=== PATIENT | female | born 1940 | race Caucasian/White ===

== ENCOUNTER → 2019-09-20 14:55 | Outpatient (BNVA) | payer MEDICARE, SELFPAY | PROVIDERS: Family Provider Family Medicine; PCP Family Medicine; Referring Provider Physician Assistant; Visit Provider Nurse Practitioner Family | DX: Z79.899 Other long term (current) drug therapy (principal); E11.29 Type 2 diabetes mellitus with other diabetic kidney complication; N32.81 Overactive bladder; I10 Essential (primary) hypertension | CPT/HCPCS: 36415; 80069 ==

== ENCOUNTER → 2020-06-23 00:01 | Outpatient (BNVA) | payer MEDICARE, SELFPAY | PROVIDERS: Family Provider Family Medicine; PCP Family Medicine; Visit Provider Family Medicine | DX: R42 Dizziness and giddiness (principal); Z98.890 Other specified postprocedural states; M62.838 Other muscle spasm; I10 Essential (primary) hypertension; E11.9 Type 2 diabetes mellitus without complications | CPT/HCPCS: 80053; 80061 ==

== ENCOUNTER → 2020-09-06 11:34 | Outpatient (BNVA) | payer MEDICARE, SELFPAY | PROVIDERS: Family Provider Family Medicine; PCP Family Medicine; Referring Provider Internal Medicine; Visit Provider Internal Medicine | DX: E83.52 Hypercalcemia (principal); N18.32 Chronic kidney disease, stage 3b; I10 Essential (primary) hypertension; Z79.899 Other long term (current) drug therapy | CPT/HCPCS: 80069; 82043; 82306; 82310; 83883; 83970; 84155; 84165; 85025 ==

== ENCOUNTER 2020-09-13 06:00 | Outpatient (RCR) | payer MEDICARE, SELFPAY | END 2020-09-19 23:59 | disposition home or self-care (01) | LOC: MPT 06:00 | PROVIDERS: Family Provider Family Medicine; PCP Family Medicine; Referring Provider Family Medicine; Visit Provider Family Medicine | DX: R42 Dizziness and giddiness (principal) | CPT/HCPCS: 97110; 97161 ==

== ENCOUNTER 2020-09-20 06:00 | Outpatient (RCR) | payer MEDICARE, SELFPAY | END 2020-10-19 23:59 | disposition home or self-care (01) | LOC: MPT 06:00 | PROVIDERS: PCP Family Medicine; Referring Provider Family Medicine; Visit Provider Family Medicine | DX: R42 Dizziness and giddiness (principal) | CPT/HCPCS: 97110; 97140 ==

== ENCOUNTER 2020-10-19 11:00 | Outpatient (CLI) | payer MEDICARE, SELFPAY ==
--- NOTE | 2020-10-19 11:06 | US_ITS ---
WS: [id number] ULTRASOUND RENAL TECHNIQUE: Ultrasound examination of both kidneys. CLINICAL INFORMATION: CKD STAGE 3B COMPARISON: None. FINDINGS: RIGHT: Right kidney is normal in size and appearance. Echogenicity: Normal. Cortical thickness: 1.5 cm; Normal. Hydronephrosis: None. Perinephric fluid: None. Right kidney measures: 8.6 cm x 6.1 cm x 4.8 cm. LEFT:Simple appearing left renal cyst measuring 2.6 x 2.8 x 2.8 cm Left kidney is normal in size and appearance. Echogenicity: Normal. Cortical thickness: 1.3 cm; Normal. Hydronephrosis: None. Perinephric fluid: None. Left kidney measures: 9.9 cm x 5.5 cm x 5.5 cm. Normal visualized aorta. Normal bladder. US/US renal BI* [id number] IMPRESSION: 1. No hydronephrosis in either kidney. 2. Simple appearing left renal cyst measuring 2.6 x 2.8 x 2.8 cm 3. Normal bladder
== END 2020-10-19 11:01 | disposition home or self-care (01) ==
LOC: US 11:03
PROVIDERS: PCP Family Medicine; Visit Provider Internal Medicine
DX: N18.32 Chronic kidney disease, stage 3b (principal); N28.1 Cyst of kidney, acquired
CPT/HCPCS: 76770

== ENCOUNTER → 2020-12-13 09:22 | Outpatient (BNVA) | payer MEDICARE, SELFPAY | PROVIDERS: PCP Family Medicine; Referring Provider Physician Assistant; Visit Provider Physician Assistant | DX: D47.2 Monoclonal gammopathy (principal); E11.22 Type 2 diabetes mellitus with diabetic chronic kidney disease; N18.32 Chronic kidney disease, stage 3b; Z79.4 Long term (current) use of insulin | CPT/HCPCS: 80053; 80061; 82310; 83036; 83883; 83970; 84155; 84165; 84443; 85025 ==

== ENCOUNTER → 2021-01-10 10:01 | Outpatient (BNVA) | payer MEDICARE, SELFPAY | PROVIDERS: PCP Family Medicine; Visit Provider Internal Medicine | DX: N18.32 Chronic kidney disease, stage 3b (principal) | CPT/HCPCS: 80069; 82043; 84550; 85025 ==

== ENCOUNTER → 2021-04-19 09:57 | Outpatient (BNVA) | payer MEDICARE, SELFPAY | PROVIDERS: PCP Family Medicine; Visit Provider Nurse Practitioner Family | DX: N18.32 Chronic kidney disease, stage 3b (principal) | CPT/HCPCS: 80069; 81003; 82043; 82652; 85025; 87086 ==

== ENCOUNTER → 2021-08-24 14:00 | Outpatient (BNVA) | payer OTHER, SELFPAY | PROVIDERS: PCP Family Medicine; Visit Provider Internal Medicine | DX: N18.32 Chronic kidney disease, stage 3b (principal) | CPT/HCPCS: 80069; 82310; 82570; 82652; 83970; 84156 ==

== ENCOUNTER → 2021-10-19 09:29 | Outpatient (BNVA) | payer OTHER, SELFPAY | PROVIDERS: PCP Family Medicine; Visit Provider Family Medicine | DX: M54.2 Cervicalgia (principal); M62.838 Other muscle spasm | CPT/HCPCS: 72040 ==

== ENCOUNTER → 2021-11-30 10:59 | Outpatient (BNVA) | payer OTHER, SELFPAY | PROVIDERS: PCP Family Medicine; Visit Provider Nurse Practitioner Family | DX: N18.32 Chronic kidney disease, stage 3b (principal) | CPT/HCPCS: 80069; 82043; 82306; 82310; 82570; 83970; 84156; 85025 ==

== ENCOUNTER → 2021-12-14 10:31 | Outpatient (BNVA) | payer OTHER, SELFPAY | PROVIDERS: PCP Family Medicine; Visit Provider Family Medicine | DX: L03.116 Cellulitis of left lower limb (principal); R60.0 Localized edema | CPT/HCPCS: 73610 ==

== ENCOUNTER → 2021-12-21 15:59 | Outpatient (BNVA) | payer OTHER, SELFPAY | PROVIDERS: PCP Family Medicine; Visit Provider Student in an Organized Health Care Education/Training Program | DX: L03.90 Cellulitis, unspecified (principal); L03.116 Cellulitis of left lower limb; R60.0 Localized edema | CPT/HCPCS: 87070; 87075; 87205; 87641 ==

== ENCOUNTER 2022-01-30 12:35 | Outpatient (CLI) | payer MEDICARE, SELFPAY ==
--- NOTE | 2022-01-30 12:30 | USCV_ITS ---
Toyin Moore Age: 81 Gender: F : 1940 Exam Date: 01/30/2022 13:53 Ordering Phys: Shena Wu MD Technologist: [place]am [place] [facility] [place]: HISTORY: PROCEDURES: Bilateral duplex Venous Insufficiency study of the Deep and Superficial systems was carried out according to normal protocol with the patient in supine positon for deep system and dependent position for the superficial system. FINDINGS: All deep veins demonstrated compressibility without evidence of intraluminal thrombus or increased echogenicity. Spectral analysis of Doppler signals demonstrates normal response to compression maneuvers indicating patency without obstruction. Reflux determinations were made with the patient in the dependent position, the weight being on the contralateral leg. No notable reflux was seen at this time. CONCLUSIONS No evidence of DVT in the above-mentioned identifiable veins. No significant venous reflux were noted either in the deep or superficial veins bilaterally Normal caliber veins bilaterally Dr Nevaeh Portillo MD [facility] (Electronically Signed) Final Date: 01 February 2022 08:08 S
== END 2022-01-30 12:36 | disposition home or self-care (01) ==
LOC: RAD 12:36
PROVIDERS: PCP Family Medicine; Visit Provider Student in an Organized Health Care Education/Training Program
DX: L03.90 Cellulitis, unspecified (principal); R60.0 Localized edema
CPT/HCPCS: 93970

== ENCOUNTER → 2022-03-08 11:03 | Outpatient (BNVA) | payer MEDICARE, SELFPAY | PROVIDERS: PCP Family Medicine; Visit Provider Nurse Practitioner Family | DX: N18.32 Chronic kidney disease, stage 3b (principal); E83.52 Hypercalcemia | CPT/HCPCS: 80069; 82306; 82310; 82570; 83970; 84156; 85025 ==

== ENCOUNTER → 2022-03-19 15:17 | Outpatient (BNVA) | payer MEDICARE, SELFPAY | PROVIDERS: PCP Family Medicine; Visit Provider Internal Medicine | DX: R10.9 Unspecified abdominal pain (principal) | CPT/HCPCS: 81003 ==

== ENCOUNTER → 2022-06-07 11:59 | Outpatient (BNVA) | payer MEDICARE, MEDICAID, SELFPAY | PROVIDERS: PCP Family Medicine; Visit Provider Student in an Organized Health Care Education/Training Program | DX: L03.116 Cellulitis of left lower limb (principal); R60.0 Localized edema | CPT/HCPCS: 99214 ==

== ENCOUNTER → 2022-06-13 09:56 | Outpatient (BNVA) | payer MEDICARE, SELFPAY | PROVIDERS: PCP Family Medicine; Visit Provider Internal Medicine | DX: N18.9 Chronic kidney disease, unspecified (principal); E83.52 Hypercalcemia; I10 Essential (primary) hypertension; Z13.220 Encounter for screening for lipoid disorders; Z13.6 Encounter for screening for cardiovascular disorders | CPT/HCPCS: 80053; 80061; 80069; 82306; 82310; 82570; 83970; 84156; 85025 ==

== ENCOUNTER 2022-09-14 15:28 | Emergency (ER) | payer MEDICARE, SELFPAY ==
[2022-09-14 15:33] VITALS: PULSE 65; RESP 16; TEMP 36.6; O2SAT 97; BMI 36.0
--- NOTE | 2022-09-14 15:48 | ED_ITS ---
Documented by User: Laura Soares PA-C 09/14/22 16:22 HPI - Fall General: Chief Complaint: Fall Stated Complaint: fall, left arm pain Time Seen by Provider: 09/14/22 15:34 Source: patient Mode of arrival: ambulatory Limitations: no limitations History of Present Illness: 81-year-old female with a history of CKD stage III, diabetes, and hypertension presents to the ER today after a fall just prior to arrival. Patient reports she was standing at her table and the next thing she remembers that she was laying in the floor. Patient reports she must of lost consciousness when she passed out and hit her head on the cabinets. Patient reports she hit the front of her head somewhere and also her mouth. Patient reports she is had bleeding from her mouth and also difficulty speaking secondary to the pain and moving her jaw since hitting her face. Patient reports her teeth also hurt. Patient denies being on a blood thinner. She is unsure how long she was out but thi nking it was just more like seconds. Patient reports when she did wake up she had her left arm up under her. Since then she has noticed left arm pain along with a hematoma on the left arm. She also has bruising to the left forearm. Patient reports pain in the upper arm over the left shoulder with any movement. Patient also complains of neck pain. 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 Patient denies any blurry vision at this time. Denies headache other than just pain from the fall. Review of Systems General: Reports: 10 or more systems reviewed and unremarkable except in HPI and below PFSH ED PFSH: Medical History Abnormal EKG Chronic kidney disease, stage 3b Diabetes Hypertension Monoclonal gammopathy Overactive bladder Pacemaker Seasonal allergies Type 2 diabetes mellitus with diabetic chronic kidney disease Surgical History H/O lithotripsy Hx of cataract surgery Social History Smoking and tobacco status: never smoked Second hand smoke exposure: Yes Alcohol intake: never Desire information about alcohol rehabilitation?: No Substance/Drug Use: never Desire information about substance/drug rehabilitation?: No Current gender identity: Female Female Reproductive History: Spontaneous abortions: No Physical Exam Const: COMMON NORMALS: average body habitus, patient oriented x3, no limitations and well nourished HENMT: COMMON NORMALS: normocephalic, external ears normal, TM's normal bilaterally and Normal nasal mucous membranes and turbinates present HEAD & SCALP: normocephalic and other (Patient has an area of redness at the hairline) NOSE: Normal nasal mucous membranes and turbinates present EXTERNAL EAR: Yes external ears normal TYMPANIC MEMBRANE: TM's normal bilaterally MOUTH: mouth trauma (Patient is noted to have bleeding coming from small laceration) OTHER: Patient is noted to have bleeding coming from below the front teeth along with dental tenderness of the front teeth. Bleeding is still present but minimal. No lip lacerations are noted. Patient is also noted to redness at the center of the forehead where the hairline and forehead meet. No open wounds. No hematomas noted. Eye: COMMON NORMALS: Equal, round and reactive pupils present and EOMs intact bilaterally PUPIL: Yes Equal, round and reactive pupils present Neck/C-Spine: OTHER: Patient has tenderness along the C-spine and sternocleidomastoid on the left side. Decreased range of motion with rotation to the left. Resp: COMMON NORMALS: normal respiratory effort, No retractions and clear to auscultation bilaterally AUSCULTATION: clear to auscultation bilaterally Cardio: COMMON NORMALS: regular rate and regular rhythm RATE: regular rate RHYTHM: regular rhythm GI: COMMON NORMALS: Normal to inspection, nondistended, normoactive bowel sounds present, Soft to palpation and non-tender PALPATION: Yes Soft to palpation Extremity: NARRATIVE EXTREMITY EXAM: Patient has tenderness over the proximal humerus. Pain with abduction of the left shoulder. decreased range of motion. Neuro: COMMON NORMALS: patient oriented x3 Psych: COMMON NORMALS: mental status grossly normal, Normal thought process present and cooperative THOUGHT PROCESS: Normal thought process present Skin: NARRATIVE SKIN EXAM: See mouth exam, patient also noted to have a hematoma of the left upper extremity over the humerus and also some bruising of the left forearm. Course ED course: Patient had a fall with loss of consciousness. We will CT of the head given this. We will also CT the neck as patient has decreased range of motion of the neck. Patient is also having neck pain. We will also CT the facial bones as patient is noted to have a laceration below the front teeth with dental pain in that area. Vital Signs: Vital signs: Vital Signs Temperature 97.9 F 09/14/22 15:33 Pulse Rate 65 09/14/22 15:33 Respiratory Rate 16 09/14/22 15:33 Pulse Oximetry 97 09/14/22 15:33 Oxygen Delivery Me thod Room Air 09/14/22 15:33 MDM - Fall Lab Data Radiology Impressions Cervical Spine CT 09/14/22 16:06 IMPRESSION: No acute findings. Face CT 09/14/22 16:06 IMPRESSION: Unremarkable mandible. Head CT 09/14/22 16:06 IMPRESSION: No acute intracranial abnormality. Humerus X-Ray 09/14/22 16:06 IMPRESSION: No acute findings. Discharge Plan Discharge Patient Disposition: Home Clinical Impression: Concussion with loss of consciousness, Contusion of arm, left, Facial contusion, Laceration of mouth, complicated Condition: Stable Prescriptions: New clindamycin HCl 300 mg capsule 300 mg PO Q8H 7 Days Qty: 21 0RF No Action loratadine 10 mg tablet 10 mg PO DAILY Novolin N FlexPen 100 unit/mL (3 mL) insulin pen 6 unit SUBCUT DAILY Rx Instructions: at bedtime ergocalciferol (vitamin D2) [Vitamin D2] 1,250 mcg (50,000 unit) capsule 1,250 mcg PO .monthly levothyroxine 25 mcg capsule 75 mcg PO DAILY isosorbide mononitrate 30 mg tablet extended release 24 hr 90 mg PO DAILY Patient Comments: 2 in AM, 1 in PM dexamethasone 4 mg tablet 4 mg PO DAILY Rx Instructions: Patient has injection on Saturday and takes one tab Sat and with chemo Januvia 50 mg tablet 50 mg PO DAILY glimepiride 2 mg tablet 2 mg PO DAILY furosemide [Lasix] 20 mg tablet 10 mg PO QAM PRN (Reason: edema) vitamin B complex Tablet 1 tab PO DAILY potassium gluconate 595 mg (99 mg) tablet 595 mg PO DAILY lisinopril 40 mg tablet 40 mg PO DAILY Hold Instructions: Home Medication placed on hold at Doctor's office aspirin 81 mg tablet,delayed release (DR/EC) 81 mg PO DAILY nitroglycerin [Nitrostat] 0.4 mg tablet, sublingual 0.4 mg SUBLINGUAL Q5M PRN amlodipine 5 mg tablet 5 mg PO BID Hold Instructions: Home Medication placed on hold at Doctor's office clotrimazole [Athlete's Foot (clotrimazole)] 1 % cream 1 applic topical BID 28 Days Qty: 15 0RF tizanidine 2 mg capsule 4 mg PO BID PRN (Reason: muscle spasticity) Qty: 30 0RF Rx Instructions: 1 or 2 cap as directed by albuterol sulfate [ProAir HFA] 90 mcg/actuation HFA aerosol inhaler 2 puff inhalation QID PRN (Reason: shortness of breath or wheezing) 30 Days Qty: 18 5RF oxybutynin chloride 5 mg tablet 5 mg PO BID 90 Days Qty: 180 3RF ondansetron HCl 8 mg tablet 8 mg PO Q8H acyclovir 400 mg tablet 800 mg PO DAILY hydrocodone-acetaminophen 5-325 mg tablet 1.5 tab PO Q6H PRN gabapentin 300 mg capsule See Rx Instructions .ROUTE .COMPLEX Qty: 270 0RF Dose Instruction: TAKE 1 CAPSULE BY MOUTH 3 TIMES DAILY Rx Instructions: TAKE 1 CAPSULE BY MOUTH 3 TIMES DAILY atorvastatin [Lipitor] 40 mg tablet 40 mg PO DAILY 90 Days Qty: 90 1RF Discharge Orders: Discharge ED (Routine); Ordered 09/14/22 Ordered By: Leigh Ann Ambriz Referrals: Kelly Leblanc MD [Primary Care Provider] - Discharge Diet: Clear Liquid Discharge Activity: Increase activity as tolerated Patient Instructions: Concussion/Head Injury - Adult, Dental Laceration (ED) Activity Restrictions/Additional Instructions: Take antibiotic as directed starting tomorrow. Clear liquid diet for the next 3 days until that is healing up nicely. Your sutures are dissolvable and will dissolve on their own. You do not need to do anything with them. Gargle with warm salt water. Follow-up with dentist for reevaluation. Follow-up with primary care provider. Return to the ER for any new or worsening symptoms Coding Level of Care Code ED Insulating Machine Operator for Chg Fwd Documented by User: Leigh Ann Ambriz, CREDIT CONTROL ASSISTANT-C 09/15/22 02:32 HPI - Fall General: Chief Complaint: Fall Stated Complaint: fall, left arm pain Time Seen by Provider: 09/14/22 15:34 PFS ED PFSH: Medical History Abnormal EKG Chronic kidney disease, stage 3b Diabetes Hypertension Monoclonal gammopathy Overactive bladder Pacemaker Seasonal allergies Type 2 diabetes mellitus with diabetic chronic kidney disease Surgical History H/O lithotripsy Hx of cataract surgery Social History Smoking and tobacco status: never smoked Second hand smoke exposure: Yes Alcohol intake: never Desire information about alcohol rehabilitation?: No Substance/Drug Use: never Desire information about substance/drug rehabilitation?: No Current gender identity: Female Procedures Laceration Oral: Site: other (Oral) Size (cm): 2 Description: other (Gaping laceration in which the lip has completely torn away from the gingiva) Depth: [id number] Local Anesthetic: other anesthetic (Cetacaine spray) Pre-repair: irrigated extensively Skin layer closed with: vicryl Size (cm): 5-0 Number of sutures: 3 Technique: simple, interrupted Course Vital Signs: Vital signs: Vital Signs Temperature 97.9 F 09/14/22 15:33 Pulse Rate 65 09/14/22 15:33 Respiratory Rate 16 09/14/22 15:33 Pulse Oximetry 97 09/14/22 15:33 Oxygen Delivery Me thod Room Air 09/14/22 15:33 MDM - Fall Medical Decision Making Assumed care of patient from [facility]. Patient was awaiting CT results. CTs are unremarkable. Patient complaining of pain treated with morphine which she reports was effective. Patient has a deep laceration to her front lower gingiva the gingiva from the lip. Through the frenulum. I consulted with Dr. Peres who recommended to consult with ENT. There is no ENT coverage today. Dr. Peres recommended to consult with [facility] ENT. A call was placed to [facility] ENT. Dr. Jae Leal return call but recommended patient to the ER at [facility]. I spoke with Dr. Falcon, ER physician at [facility] who advised that he would accept patient only if ENT would agree to see the patient. While waiting for ENT to call back the patient decides that she does not want to consult with ENT in [place]. I discussed this case again with Dr. Peres who agrees with plan of care to flush the area out with saline and loosely suture. Patient has allergy to lidocaine but has used a spray topical in the past. Cetacaine was used. 3 absorbable 5-0 sutures placed to tack tissue back together and close gaping area to prevent food from collecting. Patient tolerated procedure well. Place her on a clear liquid diet for 3 days. Advised her sutures are absorbable so she does not need to return for removal. Placed patient on antibiotic prophylactic. Follow-up with dental next week. She has chronic pain medication at home to use. Return to ER as needed for new or worsening symptoms Lab Data Radiology Impressions Cervical Spine CT 09/14/22 16:06 IMPRESSION: No acute findings. Face CT 09/14/22 16:06 IMPRESSION: Unremarkable mandible. Head CT 09/14/22 16:06 IMPRESSION: No acute intracranial abnormality. Humerus X-Ray 09/14/22 16:06 IMPRESSION: No acute findings. Discharge Plan Discharge Patient Disposition: Home Clinical Impression: Concussion with loss of consciousness, Contusion of arm, left, Facial contusion, Laceration of mouth, complicated Condition: Stable Prescriptions: New clindamycin HCl 300 mg capsule 300 mg PO Q8H 7 Days Qty: 21 0RF No Action loratadine 10 mg tablet 10 mg PO DAILY Novolin N FlexPen 100 unit/mL (3 mL) insulin pen 6 unit SUBCUT DAILY Rx Instructions: at bedtime ergocalciferol (vitamin D2) [Vitamin D2] 1,250 mcg (50,000 unit) capsule 1,250 mcg PO .monthly levothyroxine 25 mcg capsule 75 mcg PO DAILY isosorbide mononitrate 30 mg tablet extended release 24 hr 90 mg PO DAILY Patient Comments: 2 in AM, 1 in PM dexamethasone 4 mg tablet 4 mg PO DAILY Rx Instructions: Patient has injection on Saturday and takes one tab Sat and with chemo Januvia 50 mg tablet 50 mg PO DAILY glimepiride 2 mg tablet 2 mg PO DAILY furosemide [Lasix] 20 mg tablet 10 mg PO QAM PRN (Reason: edema) vitamin B complex Tablet 1 tab PO DAILY potassium gluconate 595 mg (99 mg) tablet 595 mg PO DAILY lisinopril 40 mg tablet 40 mg PO DAILY Hold Instructions: Home Medication placed on hold at Doctor's office aspirin 81 mg tablet,delayed release (DR/EC) 81 mg PO DAILY nitroglycerin [Nitrostat] 0.4 mg tablet, sublingual 0.4 mg SUBLINGUAL Q5M PRN amlodipine 5 mg tablet 5 mg PO BID Hold Instructions: Home Medication placed on hold at Doctor's office clotrimazole [Athlete's Foot (clotrimazole)] 1 % cream 1 applic topical BID 28 Days Qty: 15 0RF tizanidine 2 mg capsule 4 mg PO BID PRN (Reason: muscle spasticity) Qty: 30 0RF Rx Instructions: 1 or 2 cap as directed by albuterol sulfate [ProAir HFA] 90 mcg/actuation HFA aerosol inhaler 2 puff inhalation QID PRN (Reason: shortness of breath or wheezing) 30 Days Qty: 18 5RF oxybutynin chloride 5 mg tablet 5 mg PO BID 90 Days Qty: 180 3RF ondansetron HCl 8 mg tablet 8 mg PO Q8H acyclovir 400 mg tablet 800 mg PO DAILY hydrocodone-acetaminophen 5-325 mg tablet 1.5 tab PO Q6H PRN gabapentin 300 mg capsule See Rx Instructions .ROUTE .COMPLEX Qty: 270 0RF Dose Instruction: TAKE 1 CAPSULE BY MOUTH 3 TIMES DAILY Rx Instructions: TAKE 1 CAPSULE BY MOUTH 3 TIMES DAILY atorvastatin [Lipitor] 40 mg tablet 40 mg PO DAILY 90 Days Qty: 90 1RF Discharge Orders: Discharge ED (Routine); Ordered 09/14/22 Ordered By: Leigh Ann Ambriz Referrals: Kelly Leblanc MD [Primary Care Provider] - Discharge Diet: Clear Liquid Discharge Activity: Increase activity as tolerated Patient Instructions: Concussion/Head Injury - Adult, Dental Laceration (ED) Activity Restrictions/Additional Instructions: Take antibiotic as directed starting tomorrow. Clear liquid diet for the next 3 days until that is healing up nicely. Your sutures are dissolvable and will dissolve on their own. You do not need to do anything with them. Gargle with warm salt water. Follow-up with dentist for reevaluation. Follow-up with primary care provider. Return to the ER for any new or worsening symptoms Coding Level of Care Code ED Insulating Machine Operator for Dwayne Avila
--- NOTE | 2022-09-14 15:57 | PC.NURSE ---
pt requested to go to the bathroom. pt was assisted to bathroom to find she had soiled her pants already. pt was cleaned in the bathroom and given a pullup and green scrub pants to wear during her stay.
--- NOTE | 2022-09-14 16:06 | CTR_ITS ---
PROCEDURE INFORMATION: Exam: CT Maxillofacial Without Contrast; Mandible Exam date and time: 09/14/2022 4:27 PM Age: 81 years old Clinical indication: Injury or trauma; Fall; Blunt trauma (contusions or hematomas); Jaw; Bilateral; Additional info: Hit mouth with fall, jaw/tooth pain TECHNIQUE: Imaging protocol: Computed tomography maxillofacial without contrast. Exam focused on the mandible. Radiation optimization: All CT scans at this facility use at least one of these dose optimization techniques: automated exposure control; mA and/or kV adjustment per patient size (includes targeted exams where dose is matched to clinical indication); or iterative reconstruction. REPORTING DATA: Count of CT and Cardiac NM exams in prior 12 months: This patient has received 0 known CTs and 0 known cardiac nuclear medicine studies in the 12 months prior to the current study. COMPARISON: CR XR cervical spine 3V* [id number] 10/19/2021 9:39 AM RADIATION DOSE METRICS: Total DLP (mGy-cm): 611.6 FINDINGS: Bones/joints: Mandible is unremarkable. No acute fracture. Paranasal sinuses: Normal. No air-fluid levels. Soft tissues: Unremarkable. CT/CT facial bones wo con* [id number] IMPRESSION: Unremarkable mandible.
--- NOTE | 2022-09-14 16:06 | XRR_ITS ---
PROCEDURE INFORMATION: Exam: XR Left Humerus Exam date and time: 09/14/2022 4:17 PM Age: 81 years old Clinical indication: Pain and injury or trauma; Fall; Blunt trauma (contusions or hematomas); Arm, upper; Left; Upper arm; Additional info: Fall with L shoulder pain TECHNIQUE: Imaging protocol: Radiologic exam of the left humerus. Views: 2 or more views. COMPARISON: CR XR cervical spine 3V* [id number] 10/19/2021 9:39 AM FINDINGS: Bones/joints: Left humerus is intact. Negative for fracture. Soft tissues: Normal. XR/[place] [id number] IMPRESSION: No acute findings.
--- NOTE | 2022-09-14 16:06 | CTR_ITS ---
PROCEDURE INFORMATION: Exam: CT Cervical Spine Without Contrast Exam date and time: 09/14/2022 4:27 PM Age: 81 years old Clinical indication: Pain and injury or trauma; Fall; Blunt trauma; Neck pain; Additional info: Fall with neck pain and decreased rom TECHNIQUE: Imaging protocol: Computed tomography of the cervical spine without contrast. Radiation optimization: All CT scans at this facility use at least one of these dose optimization techniques: automated exposure control; mA and/or kV adjustment per patient size (includes targeted exams where dose is matched to clinical indication); or iterative reconstruction. REPORTING DATA: Count of CT and Cardiac NM exams in prior 12 months: This patient has received 0 known CTs and 0 known cardiac nuclear medicine studies in the 12 months prior to the current study. COMPARISON: CR XR cervical spine 3V* [id number] 10/19/2021 9:39 AM RADIATION DOSE METRICS: Total DLP (mGy-cm): 265.4 FINDINGS: Bones/joints: No acute fracture. No spinal malalignment. 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 Lungs: Lung apices are normal. Soft tissues: Unremarkable. CT/CT cervical spin wo con* [id number] IMPRESSION: No acute findings.
--- NOTE | 2022-09-14 16:06 | CTR_ITS ---
PROCEDURE INFORMATION: Exam: CT Head Without Contrast Exam date and time: 09/14/2022 4:27 PM Age: 81 years old Clinical indication: Injury or trauma; Fall; Blunt trauma (contusions or hematomas); With loss of consciousness; Loss of consciousness for 30 minutes or less; Additional info: Fall with + loc TECHNIQUE: Imaging protocol: Computed tomography of the head without contrast. Radiation optimization: All CT scans at this facility use at least one of these dose optimization techniques: automated exposure control; mA and/or kV adjustment per patient size (includes targeted exams where dose is matched to clinical indication); or iterative reconstruction. REPORTING DATA: Count of CT and Cardiac NM exams in prior 12 months: This patient has received 0 known CTs and 0 known cardiac nuclear medicine studies in the 12 months prior to the current study. COMPARISON: CR XR cervical spine 3V* [id number] 10/19/2021 9:39 AM RADIATION DOSE METRICS: Total DLP (mGy-cm): 1144.7 FINDINGS: Brain: No hemorrhage. No edema. Mild diffuse cerebral atrophy and sequela of chronic small vessel ischemic disease. Old lacunar infarct noted in the right basal ganglia. No mass effect. Cerebral ventricles: No ventriculomegaly. Paranasal sinuses: Visualized sinuses are unremarkable. No fluid levels. Mastoid air cells: Visualized mastoid air cells are well aerated. Bones/joints: Unremarkable. No acute fracture. Soft tissues: Unremarkable. CT/CT head wo con* [id number] IMPRESSION: No acute intracranial abnormality.
[2022-09-14] MEDS: morphine 4 mg/mL SDV 1 mL 2 MG IVP (18:02)
--- NOTE | 2022-09-14 18:14 | PC.NURSE ---
pt iv meds pushed by domenic mendes rn
[2022-09-14] MEDS: cetacaine Spray 20 gm Can 1 SPRAY TOPICAL (20:51)
[2022-09-14] MEDS: clindamycin 150 mg Capsule 300 MG PO (20:54)
== END 2022-09-14 21:09 | disposition home or self-care (01) ==
PROVIDERS: Emergency Provider Physician Assistant; PCP Family Medicine
DX: S40.022A Contusion of left upper arm, initial encounter (principal); S00.83XA Contusion of other part of head, initial encounter; S06.0X9A Concussion with loss of consciousness of unspecified duration, initial encounter; S01.512A Laceration without foreign body of oral cavity, initial encounter; Z79.82 Long term (current) use of aspirin; Z79.4 Long term (current) use of insulin; Z79.84 Long term (current) use of oral hypoglycemic drugs; E11.22 Type 2 diabetes mellitus with diabetic chronic kidney disease; I12.9 Hypertensive chronic kidney disease with stage 1 through stage 4 chronic kidney disease, or unspecified chronic kidney disease; N18.32 Chronic kidney disease, stage 3b; Z95.0 Presence of cardiac pacemaker; Z77.22 Contact with and (suspected) exposure to environmental tobacco smoke (acute) (chronic); W18.39XA Other fall on same level, initial encounter
CPT/HCPCS: 70450; 70486; 72125; 73060; 96374; 99284; J2270

== ENCOUNTER → 2022-10-03 10:04 | Outpatient (BNVA) | payer MEDICARE, SELFPAY | PROVIDERS: PCP Family Medicine; Visit Provider Family Medicine | DX: R60.0 Localized edema (principal); E11.29 Type 2 diabetes mellitus with other diabetic kidney complication; I95.1 Orthostatic hypotension; I10 Essential (primary) hypertension; C90.00 Multiple myeloma not having achieved remission; N32.81 Overactive bladder; Z51.81 Encounter for therapeutic drug level monitoring; Z79.4 Long term (current) use of insulin | CPT/HCPCS: 80053; 82043; 83036; 84443 ==

== ENCOUNTER → 2022-10-17 10:01 | Outpatient (BNVA) | payer MEDICARE, SELFPAY | PROVIDERS: PCP Family Medicine; Visit Provider Internal Medicine | DX: N18.9 Chronic kidney disease, unspecified (principal) | CPT/HCPCS: 80069; 82542; 82570; 84156; 85025 ==

== ENCOUNTER 2022-10-19 16:38 | Emergency (ER) | payer MEDICARE, MEDICAID, SELFPAY ==
[2022-10-19 17:07] VITALS: BP 128/63; PULSE 62; RESP 18; TEMP 36.7; O2SAT 94; BMI 36.7
[2022-10-19 19:16] LABS: Basophils % 0.2 %; Eosinophils # 0.1 10^3/uL (0.0-0.8); Eosinophils % 0.8 %; Hematocrit 34.8 % (37.0-47.0); Hemoglobin 11.2 g/dL (11.5-15.3); Lymphocytes % 12.4 %; Mean Corpuscular HGB Conc 32.2 g/dL (30.0-36.0); Mean Corpuscular Hemoglobin 32.6 pg (28.0-34.0); Mean Corpuscular Volume 101.2 fl (81-99); Mean Platelet Volume 10.3 fL (7.4-10.4); Monocytes # 0.6 10^3/uL (0.2-0.9); Monocytes % 6.8 %; Neutrophils # 6.61 10^3/uL (1.8-7.7); Neutrophils % 79.4 %; Nucleated Red Blood Cells % 0 %; Platelet Count 151 10^3/cmm (130-400); Red Blood Count 3.44 10^6/uL (4.1-5.3); Red Cell Distribution Width 14.9 % (12.1-15.1); White Blood Count 8.3 10^3/uL (4.0-10.0)
[2022-10-19 19:18] LABS: Erythrocyte Sedimentation Rate < 1 mm/hr (0-15)
[2022-10-19 19:33] LABS: D Dimer 1.13 ug/mIFEU (0-0.59)
[2022-10-19 19:45] LABS: Alanine Aminotransferase 29 U/L (0-33); Albumin Level 4.3 g/dL (3.5-5.2); Alkaline Phosphatase 80 U/L (35-105); Anion Gap 15.9 (5-19); Aspartate Amino Transferase 23 U/L (0-32); Blood Urea Nitrogen 28 mg/dL (8-23); Carbon Dioxide 25 mmol/L (22-29); Chloride 108 mmol/L (98-107); Globulin 1.7 g/dL (1.3-4.6); Glucose 119 mg/dL (65-115); Osmolality Calculated 307 mOsm/kg (285-295); Potassium 3.9 mmol/L (3.5-5.1); Sodium 145 mmol/L (136-145); Total Bilirubin 0.3 mg/dL (0.15-1.2)
== END 2022-10-19 23:21 | disposition left against medical advice (07) ==
PROVIDERS: Emergency Medicine; Emergency Provider Physician Assistant; PCP Family Medicine
DX: Z53.21 Procedure and treatment not carried out due to patient leaving prior to being seen by health care provider (principal)
CPT/HCPCS: 36415; 80053; 83605; 85025; 85378; 85651; 86140; 99283

== ENCOUNTER → 2023-01-17 08:59 | Outpatient (BNVA) | payer MEDICARE, MEDICAID, SELFPAY | PROVIDERS: PCP Family Medicine; Referring Provider Family Medicine; Visit Provider Family Medicine | DX: N18.9 Chronic kidney disease, unspecified (principal) | CPT/HCPCS: 80069; 82542; 82570; 84156; 85025 ==

== ENCOUNTER → 2023-06-18 10:52 | Outpatient (BNVA) | payer MEDICARE, MEDICAID, SELFPAY | PROVIDERS: PCP Family Medicine; Visit Provider Family Medicine | DX: I10 Essential (primary) hypertension (principal); E11.29 Type 2 diabetes mellitus with other diabetic kidney complication; Z79.4 Long term (current) use of insulin; E11.9 Type 2 diabetes mellitus without complications | CPT/HCPCS: 80069; 82310; 82570; 83036; 83970; 84156; 85025 ==

== ENCOUNTER → 2023-10-22 10:00 | Outpatient (BNVA) | payer MEDICAID, SELFPAY | PROVIDERS: PCP Family Medicine; Referring Provider Family Medicine; Visit Provider Family Medicine | DX: N18.32 Chronic kidney disease, stage 3b (principal) | CPT/HCPCS: 80069; 82043; 82306; 82310; 83970; 85025 ==

== ENCOUNTER → 2024-02-24 11:21 | Outpatient (BNVA) | payer MEDICARE, MEDICAID, SELFPAY | PROVIDERS: PCP Family Medicine; Visit Provider Family Medicine | DX: I10 Essential (primary) hypertension (principal); J44.9 Chronic obstructive pulmonary disease, unspecified; C90.00 Multiple myeloma not having achieved remission; Z79.4 Long term (current) use of insulin; E11.29 Type 2 diabetes mellitus with other diabetic kidney complication | CPT/HCPCS: 80053; 80061; 83036; 83540 ==

== ENCOUNTER → 2024-03-10 09:46 | Outpatient (BNVA) | payer MEDICARE, MEDICAID, SELFPAY | PROVIDERS: PCP Family Medicine; Referring Provider Family Medicine; Visit Provider Family Medicine | DX: N18.32 Chronic kidney disease, stage 3b (principal) | CPT/HCPCS: 80069; 82043; 82310; 83970; 85007; 85027 ==

== ENCOUNTER 2024-03-20 14:00 | Outpatient (CLI) | payer MEDICARE, MEDICAID, SELFPAY ==
--- NOTE | 2024-03-20 15:00 | USCV_ITS ---
Toyin Moore Age: 83 Gender: F : 1940 Exam Date: 03/20/2024 14:46 Ordering Phys: Kelly Leblanc MD Technologist: Jamin Gotti Exam Location: [facility] – [place] Indication: essential hypertension BP: 134 / 76 HR: 58 Rhythm: Sinus Technical Quality: Adequate MEASUREMENTS (Male / Female) Normal Values 2D ECHO LV Diastolic Diameter PLAX 5.0 cm 4.2 - 5.9 / 3.9 - 5.3 cm IVS Diastolic Thickness 1.3 cm 0.6 - 1.0 / 0.6 - 0.9 cm IVS Systolic Thickness 2.3 cm LVPW Diastolic Thickness 1.9 cm 0.6 - 1.0 / 0.6 - 0.9 cm LVPW Systolic Thickness 2.6 cm LVOT Diameter 2.0 cm LV Ejection Fraction 2D Teich 80.9 % LV Ejection Fraction MOD 4C 75.4 % LV Ejection Fraction MOD 2C 74.4 % LV Ejection Fraction 2C AL 75.8 % LA Diameter 3.4 cm RA Systolic Volume 4C AL 49.0 ml RA Systolic Volume 4C MOD 49.0 ml LA Sys Volume AL 39.5 cm cubed LA Sys Volume Index AL 18.7 cm cubed/m squared Aorta at Sinotubular Diameter 2.3 cm IVC Diameter 1.5 cm M-MODE LA Ao Ratio MM 1.2 AV Cusp Separation MM 1.7 cm DOPPLER AV Peak Velocity 144.0 cm/s LVOT Peak Velocity 95.0 cm/s AV Area Cont Eq vti 2.7 cm squared AV Area Cont Eq pk 2.1 cm squared MV Peak Velocity 211.3 cm/s MV Area PHT 3.1 cm squared Mitral E to A Ratio 0.6 TV Peak Velocity 265.2 cm/s TR Peak Velocity 288.0 cm/s TR Peak Gradient 33.2 mmHg TR Mean Velocity 238.0 cm/s TR Mean Gradient 24.1 mmHg TR Velocity Time Integral 89.5 cm PV Peak Velocity 94.0 cm/s RV Ejection Time 0.3 s FINDINGS Left Ventricle Left ventricle is normal in size. LV systolic function is normal with EF of 60 to 65%. No regional wall motion abnormalities are seen. Grade 1 diastolic dysfunction Right Ventricle Normal in size and function Right Atrium Normal in size Left Atrium Normal in size Mitral Valve Mild mitral annular calcification Trace mitral regurgitation.. Aortic Valve Structurally normal aortic valve. No significant stenosis or regurgitation. Tricuspid Valve Mild tricuspid regurgitation. Pulmonary artery systolic pressure is normal. Pulmonic Valve Mild pulmonic regurgitation Pericardium Normal Aorta Normal in size IVC Appears to be normal CONCLUSIONS LV systolic function is normal with EF of 60-65% Grade 1 diastolic dysfunction Trace mitral regurgitation Mild tricuspid regurgitation Mild pulmonic regurgitation No comparison studies are available. Kendell Robles MD (Electronically Signed) Final Date: 22 March 2024 11:09 S
== END 2024-03-20 14:01 | disposition home or self-care (01) ==
PROVIDERS: PCP Family Medicine; Visit Provider Family Medicine
DX: I50.30 Unspecified diastolic (congestive) heart failure (principal); I10 Essential (primary) hypertension; R00.1 Bradycardia, unspecified; Z95.0 Presence of cardiac pacemaker; R94.31 Abnormal electrocardiogram [ECG] [EKG]; C90.00 Multiple myeloma not having achieved remission; R06.02 Shortness of breath
CPT/HCPCS: 93306

== ENCOUNTER → 2024-09-10 11:37 | Outpatient (BNVA) | payer MEDICARE, MEDICAID, SELFPAY | PROVIDERS: PCP Family Medicine; Referring Provider Internal Medicine; Visit Provider Family Medicine | DX: N18.32 Chronic kidney disease, stage 3b (principal); E11.9 Type 2 diabetes mellitus without complications | CPT/HCPCS: 80069; 82043; 83036; 85025 ==

== ENCOUNTER → 2025-03-12 10:08 | Outpatient (BNVA) | payer MEDICARE, MEDICAID, SELFPAY | PROVIDERS: PCP Family Medicine; Visit Provider Family Medicine | DX: N18.32 Chronic kidney disease, stage 3b (principal) | CPT/HCPCS: 80069; 82310; 82340; 83970; 85025 ==